=== PATIENT | male | born 1955 | race Two or more races ===

== ENCOUNTER 2023-05-07 14:43 | Inpatient (IN) | payer OTHER, MEDICAID ==
[~2023-05-07] VITALS: Ht 160 cm; Wt 72.3 kg
[2023-05-07] MEDS ORDERED: ACETAMINOPHEN 325 MG TAB PO ONE (15:15)
[2023-05-07 15:53] LABS: Basophils # (auto) 0.1 10 ^3/uL (0-0.2); Basophils % (auto) 0.5 % (0.0-2.0); Eosinophils # (auto) 0 10 ^3/uL (0-0.8); Hematocrit 40.5 % (41.0-53.0); Lymphocytes # (auto) 0.6 10 ^3/uL (0.4-5.4); Lymphocytes % (auto) 4.7 % (10.0-50.0); Mean Corpuscular Hemoglobin 30.9 pg (28.0-32.0); Mean Corpuscular Hgb Conc. 34.5 g/dL (32.0-36.0); Mean Corpuscular Volume 89.5 fL (80.0-100.0); Monocytes # (auto) 0.6 10 ^3/uL (0-1.3); Monocytes % (auto) 4.3 % (0.0-12.0); Neutrophils # (auto) 11.8 10 ^3/uL (1.6-8.6); Neutrophils % (auto) 90.5 % (37.0-80.0); Red Blood Cells 4.53 10^6/uL (4.5-5.90); Red Cell Distribution Width 14.6 % (11.8-14.3)
[2023-05-07 16:14] LABS: INR 1.15 (0.9-1.15); Partial Thromboplastin Time 26.9 SEC (24.5-34.5)
[2023-05-07 16:15] LABS: Albumin 4.5 g/dL (3.4-5.0); Calcium 9.6 mg/dL (8.5-10.1); Magnesium 2.1 mg/dL (1.6-2.6); Potassium 3.5 mmol/L (3.5-5.1)
[2023-05-07 16:19] LABS: BUN/Creatinine Ratio 12.7 (10.0-20.0); Bilirubin, Total 0.8 mg/dL (0.2-1.0); Total Protein 7.9 g/dL (6.4-8.2)
[2023-05-07] MEDS ORDERED: MORPHINE SULFATE INJ 2 MG/ml SYRG IV PRN (20:00)
[2023-05-07] MEDS ORDERED: ONDANSETRON HCL 4 MG/2 ML VIAL IV PRN (20:00)
[2023-05-07] MEDS ORDERED: NITROGLYCERIN 0.4 MG SL TAB SL PRN (20:00)
[2023-05-07 22:08] LABS: Urine Bacteria NONE SEEN /hpf (None Seen); Urine Blood Negative /uL (Negative); Urine Specific Gravity 1.018 (1.001-1.035); Urine WBC 1 /hpf (0 - 3)
[2023-05-07] MEDS ORDERED: LOSA50TA46 PO (22:14)
[2023-05-07] MEDS ORDERED: ATOR40TA52 PO (22:14)
[2023-05-07] MEDS ORDERED: HYDR25TA5 PO (22:14)
[2023-05-07 22:40] LABS: Alcohol, Urine < 3.0 mg/dL (0-10); Amphetamine Screen, Urine NEGATIVE (NEGATIVE); Barbiturate Scree,Urine NEGATIVE (NEGATIVE); Benzodiazephine Screen, Urine NEGATIVE (NEGATIVE); Cannabinoid Screen, Urine NEGATIVE (NEGATIVE); Cocaine Screen, Urine NEGATIVE (NEGATIVE); Opiate Scree,Urine NEGATIVE (NEGATIVE); Phencyclidine Screen, Urine NEGATIVE (NEGATIVE)
[2023-05-07] MEDS: SODIUM CHLORIDE 0.9% 1,000 ML IV SCH (23:03)
[2023-05-08 01:01] VITALS: PULSE 104; RESP 19; O2SAT 94
[2023-05-08] MEDS: ACETAMINOPHEN 325 MG TAB PO PRN ×2 (02:40→18:38)
[2023-05-08] MEDS: SODIUM CHLORIDE 0.9% 1,000 ML IV SCH ×5 (03:15→23:38)
[2023-05-08 06:30] LABS: Basophils # (auto) 0.1 10 ^3/uL (0-0.2); Basophils % (auto) 0.6 % (0.0-2.0); Eosinophils # (auto) 0 10 ^3/uL (0-0.8); Eosinophils % (auto) 0.1 % (0.0-7.0); Hematocrit 36.6 % (41.0-53.0); Lymphocytes # (auto) 1.7 10 ^3/uL (0.4-5.4); Lymphocytes % (auto) 17.1 % (10.0-50.0); Mean Corpuscular Hemoglobin 31.8 pg (28.0-32.0); Mean Corpuscular Hgb Conc. 35.6 g/dL (32.0-36.0); Mean Corpuscular Volume 89.2 fL (80.0-100.0); Monocytes % (auto) 9.5 % (0.0-12.0); Neutrophils # (auto) 7.3 10 ^3/uL (1.6-8.6); Neutrophils % (auto) 72.7 % (37.0-80.0); Red Blood Cells 4.11 10^6/uL (4.5-5.90); Red Cell Distribution Width 14.2 % (11.8-14.3)
[2023-05-08 07:02] LABS: Albumin 3.8 g/dL (3.4-5.0); Calcium 8.7 mg/dL (8.5-10.1); Potassium 3.1 mmol/L (3.5-5.1)
[2023-05-08 07:08] LABS: BUN/Creatinine Ratio 13.2 (10.0-20.0); Bilirubin, Total 0.8 mg/dL (0.2-1.0); Total Protein 7.3 g/dL (6.4-8.2)
[2023-05-08 07:46] VITALS: PULSE 98; RESP 16; O2SAT 98
[2023-05-08] MEDS: cefTRIAXone 1GM/50ML D5W 50 ML IV SCH (09:23)
[2023-05-08] MEDS: ENOXAPARIN SOD 40 MG/0.4 ML SYRINGE SC SCH (09:24)
[2023-05-08] MEDS: ASPirin-EC 81 mg tab PO SCH (09:24)
[2023-05-08] MEDS: HCTZ 25 MG TAB PO SCH (09:25)
[2023-05-08] MEDS: LOSARTAN POTASSIUM 50 MG TAB PO SCH (09:26)
[2023-05-08] MEDS ORDERED: PANTOPRAZOLE 40 MG/10 ML VIAL INJ IV SCH (10:00)
[2023-05-08 17:51] VITALS: BP 136/78; PULSE 112; RESP 18; TEMP 100.6; O2SAT 95
[2023-05-08] MEDS ORDERED: GEMF-66 PO (18:11)
[2023-05-08 18:24] VITALS: BP 136/78; PULSE 112; RESP 18; TEMP 100.6; O2SAT 95
[2023-05-08 20:00] VITALS: PULSE 115; PULSE 90; RESP 18; O2SAT 95
[2023-05-08] MEDS: ATORVASTATIN 20 MG TAB PO SCH (21:31)
[2023-05-08 22:00] VITALS: BP 103/62; PULSE 90; RESP 18; TEMP 99.7; O2SAT 95
[2023-05-09] VITALS (7 sets, daily range): BP systolic 91–133; BP diastolic 54–72; PULSE 77–107; RESP 16–20; TEMP 97.6–99.8; O2SAT 94–98
[2023-05-09] MEDS: SODIUM CHLORIDE 0.9% 1,000 ML IV SCH ×4 (04:15→21:35)
[2023-05-09 06:14] LABS: Basophils # (auto) 0.1 10 ^3/uL (0-0.2); Basophils % (auto) 0.8 % (0.0-2.0); Eosinophils # (auto) 0 10 ^3/uL (0-0.8); Eosinophils % (auto) 0.2 % (0.0-7.0); Hemoglobin 13.6 g/dL (13.5-17.5); Lymphocytes # (auto) 1.5 10 ^3/uL (0.4-5.4); Lymphocytes % (auto) 15.1 % (10.0-50.0); Mean Corpuscular Hgb Conc. 35.6 g/dL (32.0-36.0); Mean Corpuscular Volume 89.7 fL (80.0-100.0); Monocytes % (auto) 9.6 % (0.0-12.0); Neutrophils # (auto) 7.6 10 ^3/uL (1.6-8.6); Neutrophils % (auto) 74.3 % (37.0-80.0); Nucleated Red Blood Cells % 0.1 %; Red Blood Cells 4.24 10^6/uL (4.5-5.90); Red Cell Distribution Width 14.3 % (11.8-14.3); White Blood Cell 10.2 10^3/uL (4.4-10.8)
[2023-05-09 06:37] LABS: BUN/Creatinine Ratio 15.1 (10.0-20.0); Potassium 3.1 mmol/L (3.5-5.1)
[2023-05-09] MEDS ORDERED: POTASSIUM CHL 20 Meq TABLET PO ONE (09:00)
[2023-05-09] MEDS ORDERED: ADENOSINE 59 MG in GIVE UN-DILUTED 0 ML IV STA (09:09)
[2023-05-09] MEDS ORDERED: POTASSIUM CHLORIDE 40 MEQ, LIDOCAINE 1% (LOCAL ANESTH.) 4 ML in SODIUM CHL 0.9% 250 ML IV ONE (09:30)
[2023-05-09] MEDS: ASPirin-EC 81 mg tab PO SCH (10:06)
[2023-05-09] MEDS: PANTOPRAZOLE 40 MG TAB PO SCH (10:06)
[2023-05-09] MEDS: cefTRIAXone 1GM/50ML D5W 50 ML IV SCH (10:07)
[2023-05-09] MEDS: ENOXAPARIN SOD 40 MG/0.4 ML SYRINGE SC SCH (10:07)
[2023-05-09] MEDS: LOSARTAN POTASSIUM 50 MG TAB PO SCH (10:07)
[2023-05-09] MEDS: HCTZ 25 MG TAB PO SCH (10:09)
[2023-05-09] MEDS: ATORVASTATIN 20 MG TAB PO SCH (21:34)
[2023-05-10] MEDS: SODIUM CHLORIDE 0.9% 1,000 ML IV SCH ×3 (00:15→10:01)
[2023-05-10 05:00] VITALS: BP 108/64; PULSE 77; RESP 18; TEMP 97.7; O2SAT 96
[2023-05-10 05:35] LABS: Basophils # (auto) 0.1 10 ^3/uL (0-0.2); Basophils % (auto) 0.7 % (0.0-2.0); Eosinophils # (auto) 0.1 10 ^3/uL (0-0.8); Eosinophils % (auto) 1.4 % (0.0-7.0); Hematocrit 37.4 % (41.0-53.0); Lymphocytes # (auto) 2.3 10 ^3/uL (0.4-5.4); Lymphocytes % (auto) 28.9 % (10.0-50.0); Mean Corpuscular Hemoglobin 31.1 pg (28.0-32.0); Mean Corpuscular Hgb Conc. 34.6 g/dL (32.0-36.0); Mean Corpuscular Volume 89.9 fL (80.0-100.0); Monocytes # (auto) 0.7 10 ^3/uL (0-1.3); Monocytes % (auto) 9.1 % (0.0-12.0); Neutrophils # (auto) 4.7 10 ^3/uL (1.6-8.6); Neutrophils % (auto) 59.9 % (37.0-80.0); Red Blood Cells 4.16 10^6/uL (4.5-5.90); Red Cell Distribution Width 13.8 % (11.8-14.3); White Blood Cell 7.8 10^3/uL (4.4-10.8)
[2023-05-10 05:53] LABS: Calcium 8.3 mg/dL (8.5-10.1); Potassium 3.5 mmol/L (3.5-5.1)
[2023-05-10 08:00] VITALS: BP 114/69; PULSE 71; PULSE 78; RESP 19; TEMP 98.2; O2SAT 95
[2023-05-10 09:00] VITALS: BP 114/69; PULSE 78; RESP 19; TEMP 98.2; O2SAT 95
[2023-05-10] MEDS ORDERED: ASPI-543 PO (09:38)
[2023-05-10] MEDS: cefTRIAXone 1GM/50ML D5W 50 ML IV SCH (09:59)
[2023-05-10] MEDS: ENOXAPARIN SOD 40 MG/0.4 ML SYRINGE SC SCH (10:00)
[2023-05-10] MEDS: LOSARTAN POTASSIUM 50 MG TAB PO SCH (10:00)
[2023-05-10] MEDS: ASPirin-EC 81 mg tab PO SCH (10:00)
[2023-05-10] MEDS: HCTZ 25 MG TAB PO SCH (10:01)
[2023-05-10] MEDS: PANTOPRAZOLE 40 MG TAB PO SCH (10:01)
== END 2023-05-10 13:40 | disposition home or self-care (01) | DRG 871 ==
LOC: ER 14:43 → TELE 20:02 → TELE-WESTW 05-08 17:41
PROVIDERS: ADMIT Internal Medicine; ATTEND Internal Medicine
DX: A41.9 Sepsis, unspecified organism (principal); I21.4 Non-ST elevation (NSTEMI) myocardial infarction; N17.0 Acute kidney failure with tubular necrosis; I24.9 Acute ischemic heart disease, unspecified; I16.1 Hypertensive emergency; E78.5 Hyperlipidemia, unspecified; E66.9 Obesity, unspecified; E87.6 Hypokalemia; N18.32 Chronic kidney disease, stage 3b; I12.9 Hypertensive chronic kidney disease with stage 1 through stage 4 chronic kidney disease, or unspecified chronic kidney disease; E11.22 Type 2 diabetes mellitus with diabetic chronic kidney disease; Z68.28 Body mass index [BMI] 28.0-28.9, adult
CPT/HCPCS: 36415; 70450; 70551; 71045; 78452; 80048; 80053; 80061; 80307; 81001; 82550; 83036; 83605; 83735; 83880; 84443; 84484; 85025; 85610; 85730; 87040; 87086; 93005; 93017; 93306; 93886; C9113; G0378; J0153; J0696; J2001